=== PATIENT | female | born 1980 | race Two or more races ===

== ENCOUNTER 2016-10-14 22:40 | Emergency (ER) | payer MEDICAID ==
[~2016-10-14] VITALS: Ht 162.6 cm; Wt 83.9 kg
[~2016-10-14 22:40] MED LIST: LORA-653; NORGTAB59
[2016-10-14] MEDS ORDERED: SODIUM CHLORIDE 0.9% 1,000 ML IVB ONE (23:30)
[2016-10-14 23:42] LABS: Basophils # (auto) 0.1 uL; Basophils % (auto) 0.7 % (0.0-2.0); DEFINITIVE VIEW TRANSMISSION; Eosinophils # (auto) 0.3 uL; Eosinophils % (auto) 3.4 % (0.0-7.0); Hemoglobin 9.7 g/dL (12.2-16.2); Lymphocytes # (auto) 1.8 uL; Lymphocytes % (auto) 22.4 % (10.0-50.0); Mean Corpuscular Hemoglobin 19.2 pg (28.0-32.0); Mean Corpuscular Hgb Conc. 30.4 g/dL (32.0-36.0); Mean Corpuscular Volume 63.2 fL (80.0-100.0); Mean Platelet Volume 7.9 fL (7.4-10.4); Monocytes # (auto) 0.6 uL; Neutrophils # (auto) 5.1 uL; Neutrophils % (auto) 65.5 % (37.0-80.0); Platelet Count (auto) 482 10^3/uL (140-450); White Blood Cell 7.9 10^3/uL (4.4-10.8)
[2016-10-14 23:44] LABS: Albumin 3.8 g/dL (3.4-5.0); BUN/Creatinine Ratio 18.2; Calcium 8.7 mg/dL (8.5-10.1)
[2016-10-14 23:47] LABS: Bilirubin, Total 0.3 mg/dL (0.2-1.0); Red Cell Distribution Width 20.6 % (11.6-16.0); Total Protein 7.7 g/dL (6.4-8.2)
[2016-10-14 23:54] LABS: INR 1.04 (0.9-1.15); Partial Thromboplastin Time 25.9 sec (22.64-33.71); Prothrombin Time 10.7 sec (9.37-12.3)
[2016-10-15 00:04] LABS: Anisocytosis Moderate; Microcytosis Marked; Platelet Estimate Increased
[2016-10-15 00:05] LABS: Hypochromia Moderate; Ovalocytes MODERATE; Tear Drop Cells FEW
[2016-10-15 00:07] LABS: Hypersegmented Neutrophils Present
[2016-10-15] MEDS ORDERED: ALPRAZolam 0.5 MG TAB PO ONE (00:15)
[2016-10-15 01:00] VITALS: BP 125/70
== END 2016-10-15 01:59 | disposition home or self-care (01) ==
LOC: EDBD 22:40 → ER 22:44
DX: N92.1 Excessive and frequent menstruation with irregular cycle (principal); D63.8 Anemia in other chronic diseases classified elsewhere; F41.9 Anxiety disorder, unspecified; I48.91 Unspecified atrial fibrillation; D25.9 Leiomyoma of uterus, unspecified
CPT/HCPCS: 36415; 80053; 84702; 85025; 85610; 85730; 96360; 99284; J7030

== ENCOUNTER 2016-10-17 03:10 | Emergency (ER) | payer MEDICAID ==
[~2016-10-17] VITALS: Ht 162.6 cm; Wt 83.0 kg
[2016-10-17 03:54] LABS: Basophils # (auto) 0.1 uL; Basophils % (auto) 0.9 % (0.0-2.0); DEFINITIVE VIEW TRANSMISSION; Eosinophils # (auto) 0.2 uL; Eosinophils % (auto) 3.5 % (0.0-7.0); Hematocrit 26.3 % (36.0-46.0); Hemoglobin 8.1 g/dL (12.2-16.2); Lymphocytes # (auto) 1.6 uL; Lymphocytes % (auto) 23.2 % (10.0-50.0); Mean Corpuscular Hemoglobin 19.4 pg (28.0-32.0); Mean Corpuscular Hgb Conc. 30.9 g/dL (32.0-36.0); Mean Platelet Volume 7.9 fL (7.4-10.4); Monocytes # (auto) 0.7 uL; Monocytes % (auto) 10.8 % (0.0-12.0); Neutrophils # (auto) 4.2 uL; Neutrophils % (auto) 61.6 % (37.0-80.0); Platelet Count (auto) 382 10^3/uL (140-450); White Blood Cell 6.9 10^3/uL (4.4-10.8)
[2016-10-17 04:10] LABS: Red Cell Distribution Width 22.1 % (11.6-16.0)
[2016-10-17 04:24] LABS: Platelet Estimate Adequate
[2016-10-17 04:25] LABS: Anisocytosis Moderate; Hypochromia Moderate; Microcytosis Marked; Ovalocytes MODERATE; Tear Drop Cells FEW
[2016-10-17 04:30] LABS: INR 1.04 (0.9-1.15); Partial Thromboplastin Time 25.1 sec (22.64-33.71); Prothrombin Time 10.7 sec (9.37-12.3)
[2016-10-17 04:34] LABS: Urine Bilirubin Negative (Negative); Urine Blood 2+ /uL (Negative); Urine Color Yellow (Yellow); Urine Glucose Normal (Normal); Urine Ketone Negative (Negative); Urine Nitrite Negative (Negative); Urine RBC 29 /hpf (0 - 4); Urine Squamous Epithelial Cell FEW /hpf (<5); Urine Urobilinogen Normal (Negative)
[2016-10-17 04:41] LABS: Albumin 3.6 g/dL (3.4-5.0); BUN/Creatinine Ratio 19.4; Bilirubin, Total 0.4 mg/dL (0.2-1.0); Calcium 8.4 mg/dL (8.5-10.1); Potassium 4.1 mmol/L (3.5-5.1); Total Protein 7.2 g/dL (6.4-8.2)
[2016-10-17] MEDS ORDERED: ALPRAZolam 0.5 MG TAB PO ONE (04:45)
[2016-10-17 06:20] VITALS: BP 138/78
== END 2016-10-17 05:04 | disposition home or self-care (01) ==
LOC: ER 03:19
DX: N80.9 Endometriosis, unspecified (principal); N93.8 Other specified abnormal uterine and vaginal bleeding; I48.91 Unspecified atrial fibrillation; R42 Dizziness and giddiness; R07.9 Chest pain, unspecified; M54.5 Low back pain
CPT/HCPCS: 36415; 80053; 81001; 84702; 85025; 85610; 85730; 94761

== ENCOUNTER 2017-07-22 08:41 | Emergency (ER) | payer MEDICAID ==
[~2017-07-22] VITALS: Ht 162.6 cm; Wt 83.9 kg
[2017-07-22 10:14] LABS: Basophils # (auto) 0 uL; Hemoglobin 13.8 g/dL (12.2-16.2); Lymphocytes # (auto) 1.3 uL; Mean Platelet Volume 8.9 fL (6.9-10.8); Monocytes # (auto) 0.6 uL; Red Cell Distribution Width 17.3 % (11.8-14.3)
[2017-07-22 10:17] LABS: Basophils % (auto) 0.4 % (0.0-2.0); Eosinophils # (auto) 0.3 uL; Eosinophils % (auto) 4.7 % (0.0-7.0); Hematocrit 41.9 % (36.0-46.0); Lymphocytes % (auto) 22.8 % (10.0-50.0); Mean Corpuscular Hemoglobin 25.7 pg (28.0-32.0); Mean Corpuscular Hgb Conc. 32.8 g/dL (32.0-36.0); Mean Corpuscular Volume 78.3 fL (80.0-100.0); Monocytes % (auto) 10.1 % (0.0-12.0); Neutrophils # (auto) 3.6 uL; Platelet Count (auto) 266 10^3/uL (140-450); White Blood Cell 5.7 10^3/uL (4.4-10.8)
[2017-07-22 10:33] LABS: Albumin 3.8 g/dL (3.4-5.0); BUN/Creatinine Ratio 16.7; Bilirubin, Total 0.5 mg/dL (0.2-1.0); Calcium 8.7 mg/dL (8.5-10.1); Potassium 4.3 mmol/L (3.5-5.1)
[2017-07-22 10:33] LABS: Urine Bilirubin Negative (Negative); Urine Blood Negative /uL (Negative); Urine Color Yellow (Yellow); Urine Glucose Normal (Normal); Urine Ketone Negative (Negative); Urine Mucus FEW (None Seen); Urine Nitrite Negative (Negative); Urine RBC <1 /hpf (0 - 4); Urine Squamous Epithelial Cell FEW /hpf (<5); Urine Urobilinogen Normal (Negative)
[2017-07-22 11:22] VITALS: BP 132/75
== END 2017-07-22 12:12 | disposition home or self-care (01) ==
LOC: ER 08:41
DX: N39.0 Urinary tract infection, site not specified (principal); N83.201 Unspecified ovarian cyst, right side; I48.91 Unspecified atrial fibrillation
CPT/HCPCS: 36415; 74176; 80053; 81001; 81025; 82150; 83690; 85025

== ENCOUNTER 2019-01-26 07:35 | Emergency (ER) | payer MEDICAID ==
[~2019-01-26] VITALS: Ht 162.6 cm; Wt 85.7 kg
[2019-01-26 08:39] VITALS: BP 127/82
== END 2019-01-26 09:31 | disposition home or self-care (01) ==
LOC: ER 07:38
DX: J03.90 Acute tonsillitis, unspecified (principal); J01.20 Acute ethmoidal sinusitis, unspecified